=== PATIENT | female | born 1990 | race Hispanic/Latino ===

== ENCOUNTER 2021-05-18 20:16 | Inpatient (IN) | payer MEDICAID, SELFPAY ==
--- NOTE | ~2021-05-18 | MR_ITS ---
EXAMINATION: MR MRCP wo/w con/w 3D wo ind DATE: 05/19/2021 10:14 INDICATION: Cholelithiasis with elevated liver enzymes TECHNIQUE: Magnetic resonance imaging (MRI) of the abdomen was performed without and with 12 mL Multi christine intravenous contrast. Sequences included coronal T2-weighted SS-FSE, coronal T2-weighted FS SS- FSE, coronal T2-weighted FS FIESTA, axial T2-weighted FS FIESTA, axial T2-weighted FIESTA, sagittal T 2-weighted SS-FSE, axial T1-weighted dual-echo FSPGR, axial T2-weighted SS-FSE, axial T1-weighted LAV A, axial T2-weighted STIR FSE. Thick-slab T2-weighted FRFSE-XL images were obtained for magnetic reso nance cholangiopancreatography (MRCP). Rotating maximum intensity projection 3-D reconstructions of t he volumetric data were created by the technologist. Postcontrast sequences included a time course of axial T1-weighted LAVA. COMPARISON: CT dated 05/18/2021 FINDINGS: ABDOMEN MRI: Heart size is normal. No pericardial or pleural effusion. Liver, spleen, pancreas, bilateral adrenal glands and kidneys are normal. There are multiple low signal intensity gallstones filling the nearly decompressed gallbladder. No gallbladder wall thickening or pericholecystic inflammatory stranding to suggest acute cholecystitis. The bowels including the appendix are normal. No pathologically enlarge d abdominal lymphadenopathy. 3 mm retrolisthesis L5 on S1 with disc desiccation and mild disc bulge a t L5-S1. There is mild bilateral neural foraminal stenosis at this level. ABDOMEN MRCP: The common bile duct is mildly dilated to 7-8 mm. There is a 3 mm low signal intensity distal common bile duct stone at the ampulla. No intrahepatic biliary ductal dilation. No dilation of the main panc reatic duct which is nearly indiscernible IMPRESSION: 1. Cholelithiasis without findings to suggest acute cholecystitis. 2. Choledocholithiasis with 3 mm stone at the distalmost aspect of the common bile duct which is dila tyler to 8 mm. No intrahepatic biliary ductal dilation. Reviewed, dictated and finalized at location A. IMPRESSION: 1. Cholelithiasis without findings to suggest acute cholecystitis. 2. Choledocholithiasis with 3 mm stone at the distalmost aspect of the common b ile duct which is dilated to 8 mm. No intrahepatic biliary ductal dilation.
--- NOTE | ~2021-05-18 | CT_ITS ---
EXAMINATION: CT abdomen pelvis w con INDICATION: Upper abdominal and bilateral flank pain TECHNIQUE: Computed tomographic images of the abdomen and pelvis were obtained after the administrati on of 100 cc of Omnipaque 350 intravenous contrast. The dose-length product (DLP) was 454.47 mGy-cm. Automated exposure control and iterative reconstruction technique were employed. COMPARISON: None available FINDINGS: Minimal dependent atelectasis is present in the lung bases. The heart size is normal. There is mild enlargement of the common bile duct with enhancement of the wall. Stones are present in the gallbladder. There is wall thickening of the gallbladder. The liver, spleen, pancreas, and adrenal gl ands are normal. The kidneys are unremarkable. No pathologically enlarged abdominal or pelvic lymph n odes are identified. There is no free intraperitoneal gas or evidence of bowel obstruction. The appen dharmesh is normal. IMPRESSION: 1. Mild enlargement of the common bile duct with enhancement of the wall. Findings could be due to ch oledocholithiasis although none is visualized. Consider further evaluation with MRCP. 2. Cholelithiasis with mild gallbladder wall thickening, possible early cholecystitis. Consider right upper quadrant ultrasound and/or nuclear hepatobiliary scan. Reviewed, dictated and finalized at location A. IMPRESSION: 1. Mild enlargement of the common bile duct with enhancement of the wall. Findi ngs could be due to choledocholithiasis although none is visualized. Consider f urther evaluation with MRCP. 2. Cholelithiasis with mild gallbladder wall thickening, possible early cholecy stitis. Consider right upper quadrant ultrasound and/or nuclear hepatobiliary s can.
--- NOTE | ~2021-05-18 | US_ITS ---
EXAMINATION: US abdomen limited DATE: 05/19/2021 08:53 INDICATION: Cholelithiasis TECHNIQUE: Multiple grayscale and Doppler ultrasound images of the abdomen were obtained. COMPARISON: None FINDINGS: The visualized portion of the neck of the pancreas appears normal. The majority of the pancreas is ob scured. Liver has normal echogenicity and contour, with a smooth surface. No liver lesion identified. No intrahepatic biliary duct dilation suspected. Portal venous flow was seen in the hepatopetal, nor mal direction and has normal Doppler waveform. Multiple echogenic and shadowing gallstones are seen w ithin the nearly decompressed gallbladder with no abnormal wall thickening. Sonographic Nava sign w as reported as negative by the operation specialist. The common bile duct measures up to 5 mm in diameter whic h is normal. Visualized portion of the right kidney demonstrates normal echogenicity and contour with no hydronephrosis. The visualized proximal inferior vena cava is normal. IMPRESSION: 1. Cholelithiasis. Reviewed, dictated and finalized at location A. IMPRESSION: 1. Cholelithiasis.
--- NOTE | ~2021-05-18 | XR_ITS ---
EXAMINATION: XR ERCP DATE: 05/21/2021 15:24 INDICATION: Cholelithiasis. TECHNIQUE: 4 spot fluoroscopic images of the right upper quadrant were obtained during endoscopic ret rograde cholangiopancreatography (ERCP). Fluoroscopy exposure time was 140 seconds. COMPARISON: MRCP 05/19/2021 FINDINGS: Images demonstrate the endoscope with tip in the second portion of the duodenum. There is o pacification of the biliary tree with dilatation of the common duct and demonstration of balloon swee ping. IMPRESSION: 1. Dilated common duct and balloon sweeping of the common duct. Please refer to the ERCP procedure no te for additional details. Reviewed, dictated and finalized at location A. IMPRESSION: 1. Dilated common duct and balloon sweeping of the common duct. Please refer to the ERCP procedure note for additional details.
[2021-05-18 20:27] VITALS: BP 117/57; PULSE 61; RESP 18; TEMP 37.1; O2SAT 100
[2021-05-18 20:48] LABS: Basophils Percent Auto 0.5 % (0.2-1.2); Eosinophils Absolute Auto 0.2 K/mm3 (0-0.3); Eosinophils Percent Auto 2.5 % (0-4.4); Hemoglobin 12.1 g/dL (12.0-15.0); Immature Granulocyte Absolute 0.01 K/mm3 (0.00-0.031); Immature Granulocyte Percent A 0.2 % (0-0.5); Lymphocytes Percent Auto 24.9 % (18.3-44.2); Mean Corpuscular HGB Conc 32.7 g/dl (32-36); Mean Corpuscular Hemoglobin 30.9 pg (26-34); Mean Corpuscular Volume 94.4 fl (80-100); Mean Platelet Volume 10.2 fl (7.4-10.4); Monocytes Absolute Auto 0.4 K/mm3 (0.1-0.6); Neutrophils Percent Auto 65.9 % (45.5-73.1); Platelet Count Result 204 k/mm3 (150-375); Red Blood Count 3.92 M/mm3 (4.2-5.4); Red Cell Distribution Width 12.5 % (11.5-14.5)
[2021-05-18 20:59] LABS: Alanine Aminotransferase 359 U/L (4-35); Albumin Level 4.6 g/dL (3.5-5.1); Alkaline Phosphatase 226 U/L (38-126); Anion Gap 12 mmol/L (8-16); Aspartate Amino Transferase 464 U/L (14-36); Bilirubin,Total 0.7 mg/dL (0.2-1.3); Blood Urea Nitrogen 10 mg/dL (7-17); Calcium 10.1 mg/dL (8.4-10.2); Carbon Dioxide 24 mmol/L (22-30); Chloride 104 mmol/L (98-107); Estimated Glomerular Filt Rate > 60; Glucose 108 mg/dL (65-110); Lipase 82 U/L (23-300); Potassium 3.7 mmol/L (3.4-5.0); Sodium 140 mmol/L (137-145)
--- NOTE | 2021-05-18 21:03 | ED.ABDPAIN ---
HPI - Abdominal Pain General Chief Complaint: Abdominal Pain Stated Complaint: abdominal pain Time Seen by Provider: 05/18/21 21:03 History of Present Illness HPI narrative: Severe right upper quadrant pain today. radiates to the back. Associated with nausea and vomiting. She has had similar pain in the past and was told that it was due to gall stones. She did not follow-up. No fever, diarrhea, CP, SOB. Related Data Home Medications Medication Instructions Recorded Confirmed No Home Medications 05/18/21 05/18/21 Allergies Allergy/AdvReac Type Severity Reaction Status Date / Time No Known Allergies Allergy Verified 05/19/21 00:46 Review of Systems Review of Systems: All systems reviewed & are unremarkable except as noted in HPI and below Constitutional: Constitutional: Denies fever(s) Eyes: Eyes: Reports no additional eye complaints ENT: Denies dizziness Cardiovascular: Cardiovascular: Denies chest pain Respiratory: Respiratory: Denies dyspnea Gastrointestinal: Gastrointestinal: Reports as per HPI Genitourinary: Genitourinary: Reports no additional female genitourinary complaints Neurologic: Denies dizziness and Denies weakness [facility] Past Medical History Medical History RUQ pain Family History Family History Other Unknown family medical history Social History Social History Smoking status: Never smoker Alcohol intake: never Substance use: never Gender identity (if verbalized by the patient): Female Spiritual care concerns: No Exam Const: General: healthy appearing, no acute distress and alert Orientation/consciousness: patient oriented x3 HENMT: Head: normal to inspection Neck: Neck: normal visual inspection Resp: Effort & Inspection: normal respiratory effort Auscultation: clear to auscultation bilaterally Cardio: Rate: regular rate Rhythm: regular rhythm GI: Inspection: non-distended GI Palp: Yes Soft to palpation, Yes Tenderness to palpation present (GI) (RUQ/epigastrium), Yes Guarding due to palpation present (GI) and No Rebound tenderness present Auscultation: normal bowel sounds Skin: General skin exam: normal color Neuro: General: patient oriented x3 and moves all extremities Speech: normal speech Extrem: General: normal to inspection Course Vital Signs Vital signs: Vital Signs Temperature 37.1 C 05/18/21 20:27 Pulse Rate 61 05/18/21 20:27 Respiratory Rate 18 05/18/21 20:27 Blood Pressure 117/57 L 05/18/21 20:27 Pulse Oximetry 100 05/18/21 20:27 Temperature 36.2 C L 05/19/21 21:49 Pulse Rate 58 L 05/19/21 21:49 Respiratory Rate 16 05/19/21 21:49 Blood Pressure 108/66 05/19/21 21:49 Pulse Oximetry 100 05/19/21 21:49 MDM - Abdominal Pain MDM Narrative Medical decision making narrative: Imaging concerning for acute cholecystitis and choledocholithiasis. Mild leukocytosis. Moderate elevation of AST and ALT. Dr. Deal and Dr. Neal will consult. Hospitalist accepted admission. Medical Records Attestation: I reviewed the patient's medical records. Lab Data Attestation: I reviewed the patient's lab results. Result diagrams: 05/19/21 04:33 05/19/21 04:33 Labs: Lab Results 05/18/21 05/18/21 05/18/21 Range/Units 20:38 20:38 20:52 WBC 6.0 (4.5-10.0) K/mm3 RBC 3.92 L (4.2-5.4) M/mm3 Hgb 12.1 (12.0-15.0) g/dL Hct 37.0 (37.0-47.0) % MCV 94.4 (80-100) fl MCH 30.9 (26-34) pg MCHC 32.7 (32-36) g/dl RDW 12.5 (11.5-14.5) % Plt Count 204 (150-375) k/mm3 MPV 10.2 (7.4-10.4) fl Immature Gran % (Auto) 0.2 (0-0.5) % Neut % (Auto) 65.9 (45.5-73.1) % Lymph % (Auto) 24.9 (18.3-44.2) % Morton % (Auto) 6.0 (2.6-8.5) % Eos % (Auto) 2.5 (0-4.4) % Baso %
[2021-05-18 21:04] LABS: Add Urine Microscopic? YES; Amorphous Sediment Urine Few; Appearance Urine Cloudy (Clear); Bilirubin Urine Negative (Negative); Blood Urine 2+ (Negative); Color Urine Yellow (Yellow); Glucose Urine UA Negative (Negative); Ketones Urine Negative (Negative); Leukocyte Esterase Ur 1+ LEU/UL (Negative); Mucus Urine Rare /lpf; Nitrate Urine Negative (Negative); Protein Urine Negative (Negative); Specific Grav Ur 1.008 (1.001-1.035); Squamous Epithelial Cell Urine Many /hpf (Few); WBC Urine 0-3 /hpf
--- NOTE | 2021-05-18 21:09 | PC.NURSE ---
pt reports pain been ongoing 2-3 months. pt reports was at a hospital previously and was told she had gallstones
[2021-05-18 21:10] VITALS: BP 108/64; PULSE 78; RESP 14; O2SAT 100
[2021-05-18] MEDS: ONDANSETRON INJ 4 MG/2 ML VIAL IV PUSH (21:40)
[2021-05-18] MEDS: SODIUM CHLORIDE 0.9% IV 1,000 ML 999 ML IV CONT (21:40)
[2021-05-18] MEDS: fentaNYL CITRATE INJ (*CRX) 100 MCG/2 ML VIAL 50 MCG IV PUSH (21:42)
[2021-05-18 22:30] VITALS: BP 121/65; PULSE 53; RESP 16; O2SAT 100
--- NOTE | 2021-05-19 00:12 | ADMGEN ---
This patient, Jessica Nguyen, was admitted to Medical Room 248-01. Patient/family oriented to hospital policies and general routines including ID bracelet, bed and alarms, visiting hours, pain management, procedures, bathroom and other care routines, personal items, smoking policy, room service/diet, and visiting hours. Information on how to activate the Rapid Response Team has been discussed. Patient/Family are encouraged to report perceived risks to care and to ask questions if they do not understand what they are told or what they should do.
[2021-05-19 00:24] VITALS: BP 115/74; PULSE 79; RESP 16; TEMP 36; O2SAT 100
[2021-05-19] MEDS: LACTATED RINGERS 1,000 ML 125 ML IV CONT ×3 (00:28→20:31)
[2021-05-19 00:48] VITALS: BMI 24.4
--- NOTE | 2021-05-19 01:27 | PM.IMHP ---
H&P: HPI History of Present Illness Date/Time: 05/19/21 01:27 Chief Complaint: EPIGASTRIC PAIN Narrative: THIS IS A 30-YEAR-OLD FEMALE WITH PAST MEDICAL HISTORY SIGNIFICANT FOR CHOLELITHIASIS PATIENT PRESENTED TO THE EMERGENCY ROOM DUE TO EPIGASTRIC PAIN WITH RADIATION AROUND ON THE RIGHT TO THE BACK NAUSEA AND VOMITING SHE RATES HER PAIN AT 10/10 IN INTENSITY. PATIENT STATES THAT THIS IS HER 3RD TRIP TO THE EMERGENCY ROOM FOR THE SAME REASON HAS HAD DAILY EPIGASTRIC PAIN FOR THE LAST 3 MONTHS OR SO NOW HAS BECOME WORSE WITH NAUSEA AND VOMITING UNABLE TO KEEP ANYTHING DOWN WORSE AFTER HER MEALS. SHE DENIES ANY FEVERS RIGORS OR CHILLS. PRELIMINARY WORKUP WAS SIGNIFICANT FOR CT OF ABDOMEN AND PELVIS WITH DILATED COMMON BILE DUCT AND CHOLELITHIASIS WITH A THICKENED WALL GALLBLADDER. LIVER ENZYMES WERE ELEVATED WELL ALK PHOS. Review of Systems Review of Systems: EPIGASTRIC PAIN NAUSEA VOMITING Constitutional: Constitutional: Denies chills, Denies fatigue, Denies fever(s) and Reports poor appetite Eyes: Eyes: Denies change in vision ENT: Denies dysphagia, Denies nasal obstruction and Denies odynophagia Cardiovascular: Cardiovascular: Denies irregular heart rhythm, Denies claudication, Denies lightheadedness, Denies radiating jaw, neck or arm pain, Denies palpitations and Denies dyspnea Respiratory: Respiratory: Denies cough Gastrointestinal: Gastrointestinal: Reports abdominal pain, Denies dyspepsia, Denies heartburn, Reports diarrhea, Reports nausea and Reports vomiting Genitourinary: Genitourinary: Reports no additional female genitourinary complaints Musculoskeletal: Musculoskeletal: Reports no additional musculoskeletal complaints Integumentary/Breasts: Skin/Breast: Reports system reviewed and no additional complaints, except as docu Neurologic: Reports system reviewed and no additional complaints, except as documented Psychiatric: Psychiatric: Reports no additional psychiatric complaints Endocrine: Endocrine: Reports no additional endocrine complaints Hematologic/Lymphatic: Hematologic/Lymphatic: Reports no additional hematologic/lymphatic complaints Allergic/Immunologic: Allergic/Immunologic: Reports no additional allergic/immunologic complaints [facility] Family History Family History (Updated 05/19/21 @ 00:14 by Pinky Lacy RN) Other Unknown family medical history Social History Social History Smoking status: Never smoker Alcohol intake: never Substance use: never Gender identity (if verbalized by the patient): Female Spiritual care concerns: No Meds Home Medications and Allergies Home Medications Medication Instructions Recorded Confirmed Type No Home Medications 05/18/21 05/18/21 History Allergies Allergy/AdvReac Type Severity Reaction Status Date / Time No Known Allergies Allergy Verified 05/19/21 00:46 Vital Signs Vital Signs - 24 hr 05/18/21 20:27 05/18/21 21:10 05/18/21 22:30 Temperature 98.8 F Pulse Rate 61 78 53 L Respiratory Rate 18 14 16 Blood Pressure 117/57 L 108/64 121/65 Pulse Oximetry 100 100 100 05/19/21 00:24 Temperature 96.8 F L Pulse Rate 79 Respiratory Rate 16 Blood Pressure 115/74 Pulse Oximetry 100 Exam Narrative: [place] Const: General: comfortable, no acute distress, well developed, alert, awake and other ( WELL-APPEARING) Nutritional Appearance: average body habitus Orientation/consciousness: patient oriented x3 HENMT: Head: normal to inspection, normocephalic and atraumatic Ears: hearing grossly normal bilaterally General nose exam: Normal external nose present Face and sinus: normal facial exam Mouth: Yes Normal oral and palatal mucosa present Eyes: General: appearance normal, both eyes and all related structures Alignment and Position: alignment normal Sclera: sclerae normal Pupils: Equal, round and reactive pupils present EOM: EOMs intact bilaterally Neck: Neck: full ROM, no lymphadenopathy
[2021-05-19] MEDS: AMPICILLIN SULB 3 GM/NS 100 ML 3 GM/100 ML VIAL IVPB ×4 (02:05→20:15)
[2021-05-19 05:01] LABS: Basophils Percent Auto 0.2 % (0.2-1.2); Eosinophils Absolute Auto 0.2 K/mm3 (0-0.3); Eosinophils Percent Auto 3.8 % (0-4.4); Hematocrit 32.4 % (37.0-47.0); Hemoglobin 10.8 g/dL (12.0-15.0); Immature Granulocyte Absolute 0.01 K/mm3 (0.00-0.031); Immature Granulocyte Percent A 0.2 % (0-0.5); Lymphocytes Absolute Auto 2.16 K/mm3 (0.9-3.2); Lymphocytes Percent Auto 41.3 % (18.3-44.2); Mean Corpuscular HGB Conc 33.3 g/dl (32-36); Mean Corpuscular Hemoglobin 31.1 pg (26-34); Mean Corpuscular Volume 93.4 fl (80-100); Mean Platelet Volume 10.4 fl (7.4-10.4); Monocytes Absolute Auto 0.3 K/mm3 (0.1-0.6); Monocytes Percent Auto 6.5 % (2.6-8.5); Neutrophils Absolute Auto 2.5 K/mm3 (1.3-6.7); Platelet Count Result 207 k/mm3 (150-375); Red Blood Count 3.47 M/mm3 (4.2-5.4); Red Cell Distribution Width 12.4 % (11.5-14.5); White Blood Count 5.2 K/mm3 (4.5-10.0)
[2021-05-19 05:14] LABS: Alanine Aminotransferase 382 U/L (4-35); Albumin Level 3.6 g/dL (3.5-5.1); Alkaline Phosphatase 188 U/L (38-126); Anion Gap 6 mmol/L (8-16); Aspartate Amino Transferase 325 U/L (14-36); Bilirubin,Total 0.3 mg/dL (0.2-1.3); Blood Urea Nitrogen 6 mg/dL (7-17); Carbon Dioxide 25 mmol/L (22-30); Chloride 109 mmol/L (98-107); Estimated CRCL calculation 99 ml/min; Estimated Glomerular Filt Rate > 60; Glucose 81 mg/dL (65-110); Lipase 53 U/L (23-300); Potassium 4.6 mmol/L (3.4-5.0); Sodium 140 mmol/L (137-145)
[2021-05-19 05:22] VITALS: BP 111/65; PULSE 60; RESP 18; TEMP 36.6; O2SAT 100
--- NOTE | 2021-05-19 10:01 | WPDGICN ---
Assessment and Plan Assessment and plan (1) Cholelithiasis and cholecystitis with obstruction: Code(s): K80.19 - Calculus of gallbladder with other cholecystitis with obstruction Status: Acute Assessment and Plan: patient presented with worsening pain in ruq/epigastric site with elevated liver enzymes. MRCP pending to assess if she also has stones in bile duct and if that is the case then also will need ERCP, she was started on antibiotics. Will ask surgery to see patient, will need lap linda (2) Elevated liver enzymes: Code(s): R74.8 - Abnormal levels of other serum enzymes Status: Acute Assessment and Plan: most likely GB related, monitor denies alcohol or history of hepatitis will check hepatitis panel (3) Intractable nausea and vomiting: Code(s): R11.2 - Nausea with vomiting, unspecified Status: Acute Assessment and Plan: better, antiemetics prn liquid diet for now (4) RUQ pain: Code(s): R10.11 - Right upper quadrant pain Status: Acute GI Consult Note Consult date/time: 05/19/21 10:01 Reason for consult: cholecystitis, elevated liver enzymes HPI: Jessica Nguyen is a 30 year old female female from [place] who only speaks Occitan (I talked to her in Occitan). She says that for last 2-3 months had at least 2 different episodes of severe pain in epigastric area with radiation to RUQ and her back with nausea and vomiting lasting up to few hours. She came with severe pain in upper abdomen, similar presentation to previous attacks, also intractable nausea and vomiting (this is her third visit to ER, she used to go to [facility] CT scan a/p reviewed and shower mild enlargement of the common bile duct with enhancement of the wall. Findings could be due to choledocholithiasis although none is visualized. Cholelithiasis with mild gallbladder wall thickening, possible early cholecystitis. She also found to have elevated transaminases 300-400, AP 150, normal bili and wbc. Pain is better now. Review of Systems Constitutional: Constitutional: Denies fatigue Eyes: Eyes: Denies blurry vision ENT: Reports Normal hearing present Cardiovascular: Cardiovascular: Denies chest pain Respiratory: Respiratory: Denies dyspnea Gastrointestinal: Gastrointestinal: Reports abdominal pain, Reports nausea and Reports vomiting Genitourinary: Genitourinary: Denies hematuria Musculoskeletal: Musculoskeletal: Denies neck pain Integumentary/Breasts: Skin/Breast: Denies dry skin Neurologic: Denies headache(s) Psychiatric: Psychiatric: Denies behavioral changes [facility] Past Medical History Medical History (Updated 05/19/21 @ 10:30 by Dimas Rincon MD) RUQ pain Family History Family History (Updated 05/19/21 @ 00:14 by Pinky Lacy RN) Other Unknown family medical history Social History Social History Smoking status: Never smoker Alcohol intake: never Substance use: never Gender identity (if verbalized by the patient): Female Spiritual care concerns: No Meds Home Medications and Allergies Home Medications Medication Instructions Recorded Confirmed Type No Home Medications 05/18/21 05/18/21 History Allergies Allergy/AdvReac Type Severity Reaction Status Date / Time No Known Allergies Allergy Verified 05/19/21 00:46 Vital Signs Vital Signs - 24 hr 05/18/21 20:27 05/18/21 21:10 05/18/21 22:30 Temperature 98.8 F Pulse Rate 61 78 53 L Respiratory Rate 18 14 16 Blood Pressure 117/57 L 108/64 121/65 Pulse Oximetry 100 100 100 05/19/21 00:24 05/19/21 05:22 Temperature 96.8 F L 97.9 F Pulse Rate 79 60 Respiratory Rate 16 18 Blood Pressure 115/74 111/65 Pulse Oximetry 100 100 Exam Const: General: comfortable and no acute distress HENMT: General nose exam: Normal nares present Eyes: Sclera: sclerae normal Neck: Neck: supple Resp: Effort & Inspection: normal respiratory
--- NOTE | 2021-05-19 10:48 | PM.CNGS ---
Assessment and Plan Assessment and plan (1) Cholelithiasis and cholecystitis with obstruction: Onset Date: ~03/2021 Code(s): K80.19 - Calculus of gallbladder with other cholecystitis with obstruction Status: Acute Assessment and Plan: The patient has had a couple of months of periodic right upper quadrant abdominal pain and has of cholelithiasis by ultrasound and CT. In view of this I have offered the patient laparoscopic cholecystectomy possible intraoperative cholangiogram possible open cholecystectomy. Since this appears to have become acute will consider doing it this weekend. Will await the results of the MRCP done today. If this shows no stones in the common bile duct will consider proceeding tomorrow with a laparoscopic gallbladder surgery. If there are stones will await plans for ERCP and plan to do the laparoscopic gallbladder surgery after that. The risks benefits possible complications including bleeding, infection, possible injury to surrounding organs have been described to the patient and translated through the [employer] and all questions were answered. We will also provide the patient with some written Czech information regarding gallbladder disease and laparoscopic cholecystectomy. (2) Intractable nausea and vomiting: Onset Date: ~04/2021 Code(s): R11.2 - Nausea with vomiting, unspecified Status: Acute Assessment and Plan: This has been more in the last several days. Probably related to # 1. above (3) Elevated liver enzymes: Onset Date: ~04/2021 Code(s): R74.8 - Abnormal levels of other serum enzymes Status: Acute Assessment and Plan: unknown etiology mainly intrinsic enzymes are elevated. Out fossa is also slightly up awaiting results of MRCP. (4) RUQ pain: Code(s): R10.11 - Right upper quadrant pain Status: Acute History of Present Illness Consult details Consult date: 05/19/21 Review of Systems Constitutional: Constitutional: Reports as per HPI and Denies headache(s) Eyes: Eyes: Denies loss of vision and Denies eye pain ENT: Reports Normal hearing present, Denies change in voice, Denies dizziness and Denies headache(s) Cardiovascular: Cardiovascular: Denies chest pain and Denies dyspnea Respiratory: Respiratory: Denies dyspnea and Denies wheezing Gastrointestinal: Gastrointestinal: Reports abdominal pain (In epigastrium right upper quadrant radiating to the right flank.), Reports nausea and Reports vomiting Genitourinary: Genitourinary: Reports no additional female genitourinary complaints Musculoskeletal: Musculoskeletal: Denies back pain and Denies arthralgias Neurologic: Reports Normal hearing present, Denies dizziness, Denies headache(s), Denies loss of vision and Denies memory loss Psychiatric: Psychiatric: Denies memory loss and Denies panic attacks Endocrine: Endocrine: Reports no additional endocrine complaints Hematologic/Lymphatic: Hematologic/Lymphatic: Reports no additional hematologic/lymphatic complaints Allergic/Immunologic: Allergic/Immunologic: Denies wheezing PMFSH Past Medical History Medical History RUQ pain Family History Family History Other Unknown family medical history Social History Social History Smoking status: Never smoker Alcohol intake: never Substance use: never Gender identity (if verbalized by the patient): Female Spiritual care concerns: No Meds Home Medications and Allergies Home Medications Medication Instructions Recorded Confirmed Type No Home Medications 05/18/21 05/18/21 History Allergies Allergy/AdvReac Type Severity Reaction Status Date / Time No Known Allergies Allergy Verified 05/19/21 00:46 Vital Signs Vital Signs - 24 hr 05/18/21 20:27 05/18
[2021-05-19 14:00] VITALS: BP 104/55; PULSE 50; RESP 16; TEMP 36.9; O2SAT 100
--- NOTE | 2021-05-19 16:34 | PM.IMPN ---
Progress Note: A&P Assessment and Plan (1) Intractable nausea and vomiting: Onset Date: ~04/2021 Code(s): R11.2 - Nausea with vomiting, unspecified Status: Acute Assessment and Plan: KEEP NPO OKAY FOR ICE CHIPS SUPPORTIVE CARE IV FLUIDS PPI NEEDED (2) Cholecystitis: Code(s): K81.9 - Cholecystitis, unspecified Status: Acute Assessment and Plan: STARTED ON UNASYN 3gm IV (3) Elevated liver enzymes: Onset Date: ~04/2021 Code(s): R74.8 - Abnormal levels of other serum enzymes Status: Acute Assessment and Plan: LIKELY SECONDARY TO CALL STATUS IS RIGHT UPPER QUADRANT ULTRASOUND IN A.M. (4) Cholelithiasis and cholecystitis with obstruction: Onset Date: ~03/2021 Code(s): K80.19 - Calculus of gallbladder with other cholecystitis with obstruction Status: Acute Assessment and Plan: SURGERY AND GI HAS BEEN CONSULTED POSSIBLE MRCP Subjective Date/time seen: 05/19/21 14:30 Interval history: Jessica Nguyen is a 30 year old female female from [place] who only speaks Greek (I talked to her in Greek). She says that for last 2-3 months had at least 2 different episodes of severe pain in epigastric area with radiation to RUQ and her back with nausea and vomiting lasting up to few hours. Patient underwent a MRCP today that did show some stones. Patient does not have any further complaints at this time. When I went into examine the patient, she was sleeping really well. Patient has no further complaints at this time. Review of Systems Review of Systems: All systems reviewed & are unremarkable except as noted in HPI and below Exam Const: General: cooperative, healthy appearing, comfortable, no acute distress, well developed, alert and awake Nutritional Appearance: average body habitus and well nourished Orientation/consciousness: oriented to person, oriented to place, oriented to time and patient oriented x3 HENMT: Head: normal to inspection, normocephalic and atraumatic Ears: hearing grossly normal bilaterally General nose exam: Normal external nose present Face and sinus: normal facial exam Mouth: Yes Normal oral and palatal mucosa present Eyes: General: appearance normal, both eyes and all related structures Alignment and Position: alignment normal Sclera: sclerae normal Pupils: Equal, round and reactive pupils present EOM: EOMs intact bilaterally Neck: Neck: full ROM, no lymphadenopathy and no JVD Thyroid: thyroid normal Lymphatic: no lymphadenopathy noted Resp: Effort & Inspection: normal respiratory effort and able to speak in complete sentences Auscultation: clear to auscultation bilaterally Cardio: Jugular venous distension: no JVD Rate: regular rate Rhythm: regular rhythm Heart sounds: S1 normal heart sound present and S2 normal heart sound present GI: Inspection: normal to inspection and non-distended : General: Yes deferred Skin: General skin exam: normal color Rashes: no rashes Wounds: no wounds Neuro: General: oriented to person, oriented to place, oriented to time, patient oriented x3, gait normal, tone normal, moves all extremities and CN's II-XI intact bilaterally Cranial nerves: Yes CN's II-XII intact bilaterally, Yes Equal, round and reactive pupils present and Yes Bilaterally intact EOM present Cognition (Neuro): normal cognition Speech: normal speech Gait exam (Neuro): Normal gait present Motor exam (neuro): 5/5 motor strength present throughout Extrem: General: normal to inspection, full ROM, no joint enlargement and no pedal edema Objective Data Vital Signs Vital Signs: Vital Signs - 24 hr 05/18/21 20:27 05/18/21 21:10 05/18/21 22:30 Temperature 37.1 C Pulse Rate 61 78 53 L Respiratory Rate 18 14 16 Blood Pressure 117/57 L 108/64 121/65 Pulse Oximetry 100 100 100 05/19/21 00:24 05/19/21 05:22 05/19/21 14:00 Temperature 36.
[2021-05-19 21:49] VITALS: BP 108/66; PULSE 58; RESP 16; TEMP 36.2; O2SAT 100
[2021-05-20] MEDS: AMPICILLIN SULB 3 GM/NS 100 ML 3 GM/100 ML VIAL IVPB ×4 (01:34→19:32)
[2021-05-20 05:25] LABS: Hematocrit 31.7 % (37.0-47.0); Hemoglobin 10.8 g/dL (12.0-15.0); Mean Corpuscular HGB Conc 34.1 g/dl (32-36); Mean Corpuscular Hemoglobin 31.3 pg (26-34); Mean Corpuscular Volume 91.9 fl (80-100); Mean Platelet Volume 10.5 fl (7.4-10.4); Platelet Count Result 201 k/mm3 (150-375); Red Blood Count 3.45 M/mm3 (4.2-5.4); Red Cell Distribution Width 12.5 % (11.5-14.5); White Blood Count 5.3 K/mm3 (4.5-10.0)
[2021-05-20 05:44] LABS: Alanine Aminotransferase 262 U/L (4-35); Albumin Level 3.5 g/dL (3.5-5.1); Alkaline Phosphatase 171 U/L (38-126); Anion Gap 10 mmol/L (8-16); Aspartate Amino Transferase 97 U/L (14-36); Bilirubin,Total 0.4 mg/dL (0.2-1.3); Blood Urea Nitrogen 3 mg/dL (7-17); Calcium 9.4 mg/dL (8.4-10.2); Carbon Dioxide 25 mmol/L (22-30); Chloride 105 mmol/L (98-107); Estimated CRCL calculation 116 ml/min; Estimated Glomerular Filt Rate > 60; Glucose 77 mg/dL (65-110); Magnesium 1.4 mg/dL (1.6-2.3); Potassium 3.5 mmol/L (3.4-5.0); Sodium 140 mmol/L (137-145)
[2021-05-20 06:00] VITALS: BP 120/62; PULSE 64; RESP 18; TEMP 37.1; O2SAT 100
[2021-05-20 07:25] LABS: Hepatitis B Surface Antigen Negative (Negative)
[2021-05-20 07:31] LABS: HAV RESULT Negative (Negative); Hepatitis B Core IgM Result Negative (Negative)
[2021-05-20 07:42] LABS: Hepatitis C Virus Antibody Negative (Negative)
[2021-05-20] MEDS: HYDROcodone/acetaminophen (*CRX) 5-325 MG TABLET 1 TAB PO (08:00)
[2021-05-20] MEDS: LACTATED RINGERS 1,000 ML 125 ML IV CONT ×2 (08:02→19:32)
[2021-05-20] MEDS: MAGNESIUM SULF 4 GM/WATER100ML 4 GM/100 ML BAG IVPB (08:57)
--- NOTE | 2021-05-20 10:07 | PM.IMPN ---
Progress Note: A&P Assessment and Plan (1) Intractable nausea and vomiting: Onset Date: ~04/2021 Code(s): R11.2 - Nausea with vomiting, unspecified Status: Acute Assessment and Plan: Full liquid diet no nausea and vomiting reported SUPPORTIVE CARE IV FLUIDS PPI NEEDED (2) Cholecystitis: Code(s): K81.9 - Cholecystitis, unspecified Status: Acute Assessment and Plan: STARTED ON UNASYN 3gm IV WBC 5.5 trend labs labs in the am MRCP-cholelithiasis and a 3mm stone at the distal most aspect of the common bile duct ERCP for tomorrow Cholecystectomy tomorrow (3) Elevated liver enzymes: Onset Date: ~04/2021 Code(s): R74.8 - Abnormal levels of other serum enzymes Status: Acute Assessment and Plan: LIKELY SECONDARY TO cholecystectomy RIGHT UPPER QUADRANT ULTRASOUND: Cholelithiasis No liver lesion identified AST ALT trend down AST/ALT 464/359 on admission AST/ALT 262/171 today (4) Cholelithiasis and cholecystitis with obstruction: Onset Date: ~03/2021 Code(s): K80.19 - Calculus of gallbladder with other cholecystitis with obstruction Status: Acute Assessment and Plan: SURGERY AND GI HAS BEEN CONSULTED: thank you for your recommendations MRCP 05/19/21 ERCP 05/21/21 Subjective Date/time seen: 05/20/21 08:45 Interval history: Jessica Nguyen is a 30 year old female female from [place] who only speaks Yoruba says that for last 2-3 months had at least 2 different episodes of severe pain in epigastric area with radiation to RUQ and her back with nausea and vomiting lasting up to few hours. Patient has pain today. She stated that she was given oral pain medication that did help, however, she stated that her pain came back rather quickly. she stated that her pain is in her lower abdomen, under her navel. She rates the pain 4-5/0. She also stated that she is having some chills, and she sometimes feels like she is short of breath at rest and with activity. It is noted that she is going to have an ERCP done first then will probably have a cholecystectomy. Currently she is hunger and has been able to tolerate her full liquid tray. She denies chest pain, nausea, vomiting, headache, fevers, or sweats. Review of Systems Review of Systems: All systems reviewed & are unremarkable except as noted in HPI and below Exam Const: General: cooperative, healthy appearing, comfortable, no acute distress, well developed, alert and awake Nutritional Appearance: average body habitus and well nourished Orientation/consciousness: oriented to person, oriented to place, oriented to time and patient oriented x3 HENMT: Head: normal to inspection, normocephalic and atraumatic Ears: hearing grossly normal bilaterally General nose exam: Normal external nose present Face and sinus: normal facial exam Mouth: Yes Normal oral and palatal mucosa present Eyes: General: appearance normal, both eyes and all related structures Alignment and Position: alignment normal Sclera: sclerae normal Pupils: Equal, round and reactive pupils present EOM: EOMs intact bilaterally Neck: Neck: full ROM, no lymphadenopathy and no JVD Thyroid: thyroid normal Lymphatic: no lymphadenopathy noted Resp: Effort & Inspection: normal respiratory effort and able to speak in complete sentences Auscultation: clear to auscultation bilaterally Cardio: Jugular venous distension: no JVD Rate: regular rate Rhythm: regular rhythm Heart sounds: S1 normal heart sound present and S2 normal heart sound present GI: Inspection: normal to inspection and non-distended : General: Yes deferred Skin: General skin exam: normal color Rashes: no rashes Wounds: no wounds Neuro: General: oriented to person, oriented to place, oriented to time, patient oriented x3, gait normal, tone normal, moves all extremities and CN's II
[2021-05-20] MEDS: MORPHINE SULFATE (*CRX) 4 MG/ML INJ IV PUSH (11:05)
--- NOTE | 2021-05-20 11:05 | PC.NURSE ---
Patient complaining of shortness of breath at rest and with activity. Keyur Weathers is aware. Patient's oxygen at rest and with activity was 100%. Patient complaining of pain from her IV. IV replaced. I explained the patient's oxygen levels, pain medications and IV using the [employer] sorter [employer]issel [id number].
--- NOTE | 2021-05-20 11:25 | WPDGIPROGNO ---
Progress Note: A&P Assessment and Plan (1) Choledocholithiasis with acute cholecystitis with obstruction: Code(s): K80.43 - Calculus of bile duct with acute cholecystitis with obstruction Status: Acute Assessment and Plan: MRCP reviewed and showed 3mm stone in distal cbd, this was reviewed with patient and , answered all their questions and agreeable to proceed tomorrow with ERCP, then will need lap linda (surgery on board) (2) RUQ pain: Code(s): R10.11 - Right upper quadrant pain Status: Acute Assessment and Plan: biliary related, improving will give indomethacin tomorrow prior ercp as pancretitis prophylaxis (3) Elevated liver enzymes: Onset Date: ~04/2021 Code(s): R74.8 - Abnormal levels of other serum enzymes Status: Acute Assessment and Plan: trending down hepatitis panel negative (4) Intractable nausea and vomiting: Onset Date: ~04/2021 Code(s): R11.2 - Nausea with vomiting, unspecified Status: Acute Assessment and Plan: resolved, on liquid diet Subjective Date/time seen: 05/20/21 11:25 Interval history: still some abdominal pain but improved, tolerating liquid diet. also is at bedside. Review of Systems Review of Systems: All systems reviewed & are unremarkable except as noted in HPI and below Exam Const: General: comfortable and no acute distress HENMT: General nose exam: Normal nares present Eyes: Sclera: sclerae normal Neck: Neck: supple Resp: Auscultation: clear to auscultation bilaterally Cardio: Rate: regular rate Rhythm: regular rhythm GI: GI Palp: Yes Soft to palpation, Yes Tenderness to palpation present (GI) (mild ttp in epigastric, no rebound- improved) and No Guarding due to palpation present (GI) Auscultation: normal bowel sounds Skin: General skin exam: normal color Neuro: General: gait normal Speech: normal speech Motor exam (neuro): Normal motor muscle tone present throughout Extrem: General: normal to inspection Psych: Mental Status: mental status grossly normal Objective Data Vital Signs Vital Signs: Vital Signs - 24 hr 05/19/21 14:00 05/19/21 21:49 05/20/21 06:00 Temperature 98.4 F 97.2 F L 98.8 F Pulse Rate 50 L 58 L 64 Respiratory Rate 16 16 18 Blood Pressure 104/55 L 108/66 120/62 Pulse Oximetry 100 100 100 Intake/Output Intake/Output: Intake & Output 05/17/21 05/18/21 05/19/21 05/20/21 23:59 23:59 23:59 23:59 Intake Total 1050 2600 1200 Balance 1050 2600 1200 Meds/Results Medications: Active Medications Generic Name Dose Route Start Last Admin Trade Name Freq PRN Reason Stop Dose Admin Hydrocodone Bitart/Acetaminophen 1 tab 05/20/21 07:52 05/20/21 08:00 Hydrocodone/Acetaminophen (*Crx) 5-325 Mg Tablet PO 1 tab Q6H PRN Administration Pain Rated 4-6 Lactated Ringer's 1,000 mls @ 125 mls/hr 05/18/21 22:50 05/20/21 08:02 Lr - Lactated Ringers Iv IV CONT 125 mls/hr .Q8H RAFIA Administration Ampicillin Sodium/Sulbactam Sodium 3 gm in 100 mls @ 200 mls/hr 05/19/21 02:00 05/20/21 08:30 Unasyn 3 Gm/Ns 100 Ml IVPB Infused Q6H RAFIA Infusion Indomethacin 50 mg 05/21/21 13:00 Indomethacin 50 Mg Supp.Rect RECTAL 05/21/21 13:01 ONCE ONE Morphine Sulfate 4 mg 05/18/21 22:48 05/20/21 11:05 Morphine Sulfate (*Crx) 4 Mg/Ml Inj IV PUSH 4 mg Q2H PRN Administration Pain Rated 7-10 Ondansetron HCl 4 mg 05/18/21 22:48 Ondansetron Inj 4 Mg/2 Ml Vial IV PUSH Q4H PRN Nausea Radiology Results: ITS Impressions Abdomen/Pelvis CT 05/18/21 22:23 IMPRESSION: 1. Mild enlargement of the common bile duct with enhancement of the wall. Findings could be due to choledocholithiasis although none is visualized. Consider further evaluation with MRCP. 2. Cholelithiasis with mild gallbladder wall thickening, possible early cholecystitis. Consider right upper quadrant ultrasound and/or nuclea
[2021-05-20 14:15] VITALS: BP 124/71; PULSE 62; RESP 16; TEMP 36.5; O2SAT 100
[2021-05-20 21:23] VITALS: BP 109/66; PULSE 53; RESP 16; TEMP 36.8; O2SAT 100
[2021-05-21] VITALS (11 sets, daily range): BP systolic 100–145; BP diastolic 57–85; PULSE 47–74; RESP 14–23; TEMP 36–37.3; O2SAT 98–100
[2021-05-21] MEDS: AMPICILLIN SULB 3 GM/NS 100 ML 3 GM/100 ML VIAL IVPB ×4 (01:17→22:31)
[2021-05-21 06:24] LABS: Hematocrit 33.6 % (37.0-47.0); Hemoglobin 11.4 g/dL (12.0-15.0); Mean Corpuscular HGB Conc 33.9 g/dl (32-36); Mean Corpuscular Hemoglobin 31.5 pg (26-34); Mean Corpuscular Volume 92.8 fl (80-100); Mean Platelet Volume 10.5 fl (7.4-10.4); Platelet Count Result 200 k/mm3 (150-375); Red Blood Count 3.62 M/mm3 (4.2-5.4); Red Cell Distribution Width 12.4 % (11.5-14.5); White Blood Count 5.5 K/mm3 (4.5-10.0)
[2021-05-21 06:48] LABS: Alanine Aminotransferase 200 U/L (4-35); Albumin Level 3.8 g/dL (3.5-5.1); Alkaline Phosphatase 158 U/L (38-126); Anion Gap 8 mmol/L (8-16); Aspartate Amino Transferase 57 U/L (14-36); Bilirubin,Total 0.4 mg/dL (0.2-1.3); Blood Urea Nitrogen 3 mg/dL (7-17); Calcium 9.4 mg/dL (8.4-10.2); Carbon Dioxide 26 mmol/L (22-30); Chloride 106 mmol/L (98-107); Estimated CRCL calculation 99 ml/min; Estimated Glomerular Filt Rate > 60; Glucose 72 mg/dL (65-110); Sodium 140 mmol/L (137-145)
[2021-05-21] MEDS: LACTATED RINGERS 1,000 ML 125 ML IV CONT ×3 (07:41→22:31)
--- NOTE | 2021-05-21 13:15 | PC.NURSE ---
Patient left to go to GI lab via stretcher, went with pt.
[2021-05-21] MEDS: LACTATED RINGERS 1,000 ML 150 ML IV CONT (13:36)
--- NOTE | 2021-05-21 13:44 | WPDANESEPPF ---
Anes - Initial Pre Proc Eval Procedure: Operation Date: 05/21/21 14:00 Proposed Procedures p Endoscopic Retro Cholangiopancreatogram - Dimas Rincon MD Date/Time: 05/21/21 13:44 Surgeon: Dori Jacinto MD Pre Op Diagnosis: Acute choledocolithiasis/cholecystitis Patient Data Age: 30 Gender: F Height: 1.63 m Weight: 64.5 kg Last Vital Signs Temp 36.4 C L 05/21/21 13:26 Pulse 74 05/21/21 13:26 Resp 18 05/21/21 13:26 BP 126/58 L 05/21/21 13:26 Pulse Ox 100 05/21/21 13:26 Allergies Allergy/AdvReac Type Severity Reaction Status Date / Time No Known Allergies Allergy Verified 05/21/21 13:21 Home Medications Medication Instructions Recorded Confirmed Type No Home Medications 05/18/21 05/18/21 History Laboratory Tests 05/21/21 05/21/21 05:45 05:45 WBC 5.5 K/mm3 K/mm3 (4.5-10.0) RBC 3.62 M/mm3 L M/mm3 (4.2-5.4) Hgb 11.4 g/dL L g/dL (12.0-15.0) Hct 33.6 % L % (37.0-47.0) MCV 92.8 fl fl (80-100) MCH 31.5 pg pg (26-34) MCHC 33.9 g/dl g/dl (32-36) RDW 12.4 % % (11.5-14.5) Plt Count 200 k/mm3 k/mm3 (150-375) MPV 10.5 fl H fl (7.4-10.4) Sodium 140 mmol/L mmol/L (137-145) Potassium 4.0 mmol/L mmol/L (3.4-5.0) Chloride 106 mmol/L mmol/L (98-107) Carbon Dioxide 26 mmol/L mmol/L (22-30) Anion Gap 8 mmol/L mmol/L (8-16) BUN 3 mg/dL L mg/dL (7-17) Creatinine 0.60 mg/dL L mg/dL (0.7-1.0) Estim Creat Clear Calc 99 ml/min ml/min Estimated GFR > 60 (59 - ) Glucose 72 mg/dL mg/dL (65-110) Calcium 9.4 mg/dL mg/dL (8.4-10.2) Total Bilirubin 0.4 mg/dL mg/dL (0.2-1.3) AST 57 U/L H U/L (14-36) ALT 200 U/L H U/L (4-35) Alkaline Phosphatase 158 U/L H U/L (38-126) Total Protein 6.0 g/dL L g/dL (6.3-8.2) Albumin 3.8 g/dL g/dL (3.5-5.1) Patient hx anesthesia problems: none Family hx anesthesia problems: none [facility] Past Medical History Medical History (Updated 05/20/21 @ 11:27 by Dimas Rincon MD) Choledocholithiasis with acute cholecystitis with obstruction RUQ pain Family History Family History Other Unknown family medical history Social History Social History Smoking status: Never smoker Alcohol intake: never Substance use: never Gender identity (if verbalized by the patient): Female Spiritual care concerns: No Anes - Eval Final PreProcedure Day of Procedure 05/21/21 13:44 Patient weight: normal Heart: regular rate and rhythm Lungs: clear to auscultation Airway: Mallampati scale class II Neurological: alert and oriented Last oral intake: >/= 8 hours ASA classification: II Emergent: no Anesthetic plan: proceed Anesthesia type and monitoring: general ETT and standard monitoring Informed Consent: The patient's anesthetic plan and its attendant risks and benefits were discussed with the patient/family/POA. Questions were solicited and answers provided to the satisfaction of the patient/family/POA.
[2021-05-21] MEDS: INDOMETHACIN 50 MG SUPP.RECT RECTAL (14:49)
--- NOTE | 2021-05-21 16:27 | PM.IMPN ---
Progress Note: A&P Assessment and Plan (1) Intractable nausea and vomiting: Onset Date: ~04/2021 Code(s): R11.2 - Nausea with vomiting, unspecified Status: Acute Assessment and Plan: Clear liquid diet no nausea and vomiting reported SUPPORTIVE CARE IV FLUIDS PPI NEEDED (2) Cholecystitis: Code(s): K81.9 - Cholecystitis, unspecified Status: Acute Assessment and Plan: STARTED ON UNASYN 3gm IV WBC 5.5 trend labs labs in the am MRCP-cholelithiasis and a 3mm stone at the distal most aspect of the common bile duct ERCP removed a 4mm stone Cholecystectomy possibly tomorrow (3) Elevated liver enzymes: Onset Date: ~04/2021 Code(s): R74.8 - Abnormal levels of other serum enzymes Status: Acute Assessment and Plan: LIKELY SECONDARY TO cholecystitis RIGHT UPPER QUADRANT ULTRASOUND: Cholelithiasis No liver lesion identified AST ALT trend down AST/ALT 464/359 on admission AST/ALT 57/200 today (4) Cholelithiasis and cholecystitis with obstruction: Onset Date: ~03/2021 Code(s): K80.19 - Calculus of gallbladder with other cholecystitis with obstruction Status: Acute Assessment and Plan: SURGERY AND GI HAS BEEN CONSULTED: thank you for your recommendations MRCP 05/19/21 ERCP 05/21/21 Subjective Date/time seen: 05/21/21 16:27 Interval history: Jessica Nguyen is a 30 year old female female from [place] who only speaks Kazakh says that for last 2-3 months had at least 2 different episodes of severe pain in epigastric area with radiation to RUQ and her back with nausea and vomiting lasting up to few hours. Patient just got back from her ERCP where they removed a 4mm stone from the bile duct. Mild pain in the throat from the EGD scope. She also stated that she is having some nagging pain in the lower abdomen which she rates as a 3/10. She is also stating that she is hungry and wants to eat. She denies chest pain, shortness of breath, nausea, vomiting, cough, and weakness. Review of Systems Review of Systems: All systems reviewed & are unremarkable except as noted in HPI and below Exam Const: General: cooperative, healthy appearing, comfortable, no acute distress, well developed, alert and awake Nutritional Appearance: average body habitus and well nourished Orientation/consciousness: oriented to person, oriented to place, oriented to time and patient oriented x3 HENMT: Head: normal to inspection, normocephalic and atraumatic Ears: hearing grossly normal bilaterally General nose exam: Normal external nose present Face and sinus: normal facial exam Mouth: Yes Normal oral and palatal mucosa present Eyes: General: appearance normal, both eyes and all related structures Alignment and Position: alignment normal Sclera: sclerae normal Pupils: Equal, round and reactive pupils present EOM: EOMs intact bilaterally Neck: Neck: full ROM, no lymphadenopathy and no JVD Thyroid: thyroid normal Lymphatic: no lymphadenopathy noted Resp: Effort & Inspection: normal respiratory effort and able to speak in complete sentences Auscultation: clear to auscultation bilaterally Cardio: Jugular venous distension: no JVD Rate: regular rate Rhythm: regular rhythm Heart sounds: S1 normal heart sound present and S2 normal heart sound present GI: Inspection: normal to inspection and non-distended : General: Yes deferred Skin: General skin exam: normal color Rashes: no rashes Wounds: no wounds Neuro: General: oriented to person, oriented to place, oriented to time, patient oriented x3, gait normal, tone normal, moves all extremities and CN's II-XI intact bilaterally Cranial nerves: Yes CN's II-XII intact bilaterally, Yes Equal, round and reactive pupils present and Yes Bilaterally intact EOM present Cognition (Neuro): normal cognition Speech: normal speech Gait exam (Ne
--- NOTE | 2021-05-21 20:51 | PM.PNGS ---
Progress Note: A&P Assessment and Plan (1) Cholelithiasis and cholecystitis with obstruction: Onset Date: ~03/2021 Code(s): K80.19 - Calculus of gallbladder with other cholecystitis with obstruction Status: Acute Assessment and Plan: The patient has had a couple of months of periodic right upper quadrant abdominal pain and has of cholelithiasis by ultrasound and CT. In view of this I have offered the patient laparoscopic cholecystectomy possible intraoperative cholangiogram possible open cholecystectomy. Since this appears to have become acute will consider doing it this weekend. Her MRCP showed a nondistended non inflamed gallbladder. There was however a 3-4 mm stone in the common bile duct and this was removed with ERCP today. Dr. christian Nathan get stated that it went well and he would be comfortable with her going home today. I have checked with surgery and they will not let me do surgery until late tomorrow. Therefore I suggest that we send the patient home and consider bringing her back as an outpatient for her definitive laparoscopic cholecystectomy. She is willing to go home tonight of her 0 come back pick her upper also moral after breakfast. The risks benefits possible complications including bleeding, infection, possible injury to surrounding organs have been described to the patient and translated through the [employer] and all questions were answered. We will also provide the patient with some written Bhutanese information regarding gallbladder disease and laparoscopic cholecystectomy using the solar electric practitioner on Friday.. (2) Intractable nausea and vomiting: Onset Date: ~04/2021 Code(s): R11.2 - Nausea with vomiting, unspecified Status: Acute Assessment and Plan: This has Now resolved (3) Elevated liver enzymes: Onset Date: ~04/2021 Code(s): R74.8 - Abnormal levels of other serum enzymes Status: Acute Assessment and Plan: unknown etiology mainly intrinsic enzymes are elevated. total bilirubin was normal this morning before year CP. Dr. arteaga did find a single 4 mm stone in the distal common bile duct. (4) RUQ pain: Code(s): R10.11 - Right upper quadrant pain Status: Acute Assessment and Plan: Resolve status post ERCP. However we know the patient has gallstones and since she passed this when we should go ahead with a laparoscopic cholecystectomy in the near future. Current plan is to let her go home try to get this scheduled for late this week at a reasonable time and she will come back and have a done as an outpatient. Subjective Subjective Date/Time Seen: 05/21/21 20:51 Patient lying in bed finishing some liquids supper when I entered. I used the [employer] her potatoes. She states that she feels pretty good after her ERCP today. The nurse reports she has not taken anything except Tylenol for pain over the last 16 hours. Patient tolerated a liquid diet. She states that her or he went home but if he is willing to come back she would like to go home and then come back for surgery. We talked about this the other day. I knew the Friday was ordered a busy day in the OR and they tell me they would not be able this let me do her surgery until after 3 tomorrow. I will try to get or surgery scheduled for or Friday this week at a reasonable time and she will come back and have it done as an outpatient. We will provide her with a Bhutanese language low-fat diet and she should stick to this religiously. This was explained to her through the solar [employer] practitioner. Jsesika cervantes nurse knows this and we will ask hospitalist to discharge her if her can come back otherwise she may be able go home after breakfast tomorrow. Review of Systems Constitutional: Constitutional: Reports as per HPI and Denies headache(s) Eyes: Eyes: Denies loss of vision and Denies eye pain ENT: Reports Normal hearing present, Denies change in voice
[2021-05-22] MEDS: AMPICILLIN SULB 3 GM/NS 100 ML 3 GM/100 ML VIAL IVPB (01:44)
[2021-05-22 05:51] VITALS: BP 117/68; PULSE 59; RESP 14; TEMP 36.5; O2SAT 99
[2021-05-22 06:01] LABS: Hematocrit 35.2 % (37.0-47.0); Mean Corpuscular HGB Conc 34.1 g/dl (32-36); Mean Corpuscular Hemoglobin 31.3 pg (26-34); Mean Corpuscular Volume 91.9 fl (80-100); Mean Platelet Volume 10.7 fl (7.4-10.4); Platelet Count Result 217 k/mm3 (150-375); Red Blood Count 3.83 M/mm3 (4.2-5.4); White Blood Count 6.3 K/mm3 (4.5-10.0)
[2021-05-22 06:16] LABS: Alanine Aminotransferase 162 U/L (4-35); Albumin Level 3.9 g/dL (3.5-5.1); Alkaline Phosphatase 151 U/L (38-126); Anion Gap 11 mmol/L (8-16); Aspartate Amino Transferase 40 U/L (14-36); Bilirubin,Total 0.4 mg/dL (0.2-1.3); Blood Urea Nitrogen 6 mg/dL (7-17); Calcium 9.1 mg/dL (8.4-10.2); Carbon Dioxide 20 mmol/L (22-30); Chloride 107 mmol/L (98-107); Estimated CRCL calculation 116 ml/min; Estimated Glomerular Filt Rate > 60; Glucose 96 mg/dL (65-110); Magnesium 1.5 mg/dL (1.6-2.3); Sodium 138 mmol/L (137-145)
--- NOTE | 2021-05-22 07:22 | PM.DS ---
DS: Admitting Diagnosis Admitting Diagnosis Cholelithiasis DS: Discharge Diagnosis Discharge Diagnosis (1) Intractable nausea and vomiting: Onset Date: ~04/2021 Code(s): R11.2 - Nausea with vomiting, unspecified Status: Acute Assessment and Plan: Clear liquid diet no nausea and vomiting reported SUPPORTIVE CARE IV FLUIDS PPI NEEDED (2) Cholecystitis: Code(s): K81.9 - Cholecystitis, unspecified Status: Acute Assessment and Plan: STARTED ON UNASYN 3gm IV WBC 5.5 trend labs labs in the am MRCP-cholelithiasis and a 3mm stone at the distal most aspect of the common bile duct ERCP removed a 4mm stone Cholecystectomy possibly tomorrow Is to be scheduled for surgical procedure at a later time this week (3) Elevated liver enzymes: Onset Date: ~04/2021 Code(s): R74.8 - Abnormal levels of other serum enzymes Status: Acute Assessment and Plan: LIKELY SECONDARY TO cholecystitis RIGHT UPPER QUADRANT ULTRASOUND: Cholelithiasis No liver lesion identified AST ALT trend down AST/ALT 464/359 on admission AST/ALT 57/200 today Continue to trend down (4) Cholelithiasis and cholecystitis with obstruction: Onset Date: ~03/2021 Code(s): K80.19 - Calculus of gallbladder with other cholecystitis with obstruction Status: Acute Assessment and Plan: SURGERY AND GI HAS BEEN CONSULTED: thank you for your recommendations MRCP 05/19/21 ERCP 05/21/21 DS: Summary Hospital Course Hospital Course: Jessica Nguyen is a 30 year old female female from [place] who only speaks Nauruan says that for last 2-3 months had at least 2 different episodes of severe pain in epigastric area with radiation to RUQ and her back with nausea and vomiting lasting up to few hours. She underwent an MRCP and ERCP which revealed obstructive stone in the common bile duct. A 4mm stone was removed and symptoms have improved. Patient will still need a cholecystectomy. She will be scheduled for a lap linda later this week with Dr. Neal. Labs have been improving since admission. WBC 6.0, H/H 12.1/37.0, Na 140, K 3.7, BUN/Cr 10/0.50, Glucose 108, still stable at discharge. AST/ALT have been elevated and started at 464/359, and is currently 40/162. Mg has been replaced a couple of times with values as low as 1.5. Currently, She denies chest pain, shortness of breath, nausea, vomiting, cough, and weakness. Status at Discharge Functional status at discharge: independent ambulation Overall status at discharge: patient is progressing back to baseline Time Spent with Patient Time attestation: Total time spent providing and/or coordinating discharge services: 56 minutes Time spent: Greater than 30 minutes Specific discharge activities: DC Instructions, lab and chart review, education, diagnostic test, care coordination, and documentation Exam Const: General: cooperative, healthy appearing, comfortable, no acute distress, well developed, alert and awake Nutritional Appearance: average body habitus and well nourished Orientation/consciousness: oriented to person, oriented to place, oriented to time and patient oriented x3 HENMT: Head: normal to inspection, normocephalic and atraumatic Ears: hearing grossly normal bilaterally General nose exam: Normal external nose present Face and sinus: normal facial exam Mouth: Yes Normal oral and palatal mucosa present Eyes: General: appearance normal, both eyes and all related structures Alignment and Position: alignment normal Sclera: sclerae normal Pupils: Equal, round and reactive pupils present EOM: EOMs intact bilaterally Neck: Neck: full ROM, no lymphadenopathy and no JVD Thyroid: thyroid normal Lymphatic: no lymphadenopathy noted Resp: Effort & Inspection: normal respiratory effort and able to speak in complete sentences Auscultation: clear to auscultation inocente
--- NOTE | 2021-05-22 07:43 | WPDANESPN ---
Anes - Prog Note Post-Op Date/Time: 05/22/21 07:43 Cardiovascular status: normal Respiratory status: normal Airway patency: baseline Mental status: baseline Post-Op hydration status: normal Vital Signs: Last Vital Signs Temp 36.5 C 05/22/21 05:51 Pulse 59 L 05/22/21 05:51 Resp 14 05/22/21 05:51 BP 117/68 05/22/21 05:51 Pulse Ox 99 05/22/21 05:51 Pain Score (VAS): 10/29 I/O: Intake & Output 05/21/21 05/21/21 05/22/21 15:59 23:59 07:59 Intake Total 1100 2300 300 Balance 1100 2300 300 Laboratory Tests 05/22/21 05:32 05/22/21 05:32 05/22/21 05/22/21 05:32 05:32 WBC 6.3 RBC 3.83 L Hgb 12.0 Hct 35.2 L MCV 91.9 MCH 31.3 MCHC 34.1 RDW 12.0 Plt Count 217 MPV 10.7 H Sodium 138 Potassium 4.0 Chloride 107 Carbon Dioxide 20 L Anion Gap 11 BUN 6 L Creatinine 0.50 L Estim Creat Clear Calc 116 Estimated GFR > 60 Glucose 96 Calcium 9.1 Magnesium 1.5 L Total Bilirubin 0.4 AST 40 H ALT 162 H Alkaline Phosphatase 151 H Total Protein 7.0 Albumin 3.9 Post-procedural complaints: none Patient Feedback: Patient satisfied with anesthetic care.
== END 2021-05-22 09:08 | disposition home or self-care (01) ==
LOC: ANHED 21:32 → ANH2MED 05-19 01:14
PROVIDERS: Internal Medicine Gastroenterology; Admitting Provider Internal Medicine; Emergency Provider Emergency Medicine; Visit Provider Nurse Practitioner
PROC: 0FC98ZZ Extirpation of Matter from Common Bile Duct, Via Natural or Artificial Opening Endoscopic (ICD-10-PCS; CPT 43260; principal; 2021-05-21 14:00)
DX: K80.60 Calculus of gallbladder and bile duct with cholecystitis, unspecified, without obstruction (principal); K29.80 Duodenitis without bleeding
CPT/HCPCS: 36415; 74177; 74183; 74329; 76376; 76705; 80053; 80074; 81001; 81025; 83690; 83735; 85025; 85027; 96365; 96375; 99285; A9270; A9577; J0295; J1100; J2270; J2370; J2405; J2543; J2704; J3010; J3475; J7030; J7120; Q9966; Q9967

== ENCOUNTER 2021-05-23 10:47 | Outpatient (CLI) | payer MEDICAID, SELFPAY ==
[2021-05-23 11:29] LABS: EDCOVIDSCREEN Negative (Negative)
== END 2021-05-23 10:48 | disposition home or self-care (01) ==
LOC: ANHSURGERY 10:49
PROVIDERS: Visit Provider Surgery
DX: Z01.812 Encounter for preprocedural laboratory examination (principal); Z20.822 Contact with and (suspected) exposure to COVID-19
CPT/HCPCS: 87426; C9803

== ENCOUNTER 2021-05-23 10:50 | Outpatient (CLI) | payer MEDICAID, SELFPAY ==
[2021-05-23 12:18] LABS: Alanine Aminotransferase 126 U/L (4-35); Albumin Level 4.2 g/dL (3.5-5.1); Alkaline Phosphatase 131 U/L (38-126); Amylase 81 U/L (30-110); Aspartate Amino Transferase 39 U/L (14-36); Bilirubin,Total 0.2 mg/dL (0.2-1.3); Lipase 157 U/L (23-300)
== END 2021-05-23 10:51 | disposition home or self-care (01) ==
LOC: ANHSURGERY 10:50
PROVIDERS: Visit Provider Surgery
DX: K80.19 Calculus of gallbladder with other cholecystitis with obstruction (principal); Z01.818 Encounter for other preprocedural examination
CPT/HCPCS: 36415; 80076; 82150; 83690

== ENCOUNTER 2021-05-24 01:57 | Day surgery (SDC) | payer MEDICAID, SELFPAY ==
[2021-05-23 11:25] VITALS: BP 100/62; PULSE 58; RESP 18; TEMP 36.8; O2SAT 100; BMI 26.2
--- NOTE | 2021-05-23 15:00 | P.PNAN_ITS ---
Anes - Initial Pre Proc Eval Procedure: Operation Date: 05/24/21 09:30 Proposed Procedures p Laparoscopic Cholecystectomy with Intra Operative Cholangiogram, Possible Open - Srinivasa Neal MD Date/Time: 05/23/21 15:00 Surgeon: Srinivasa Neal MD Pre Op Diagnosis: acute cholecystitis with cholelithiasis Patient Data Age: 30 Gender: F Height: 1.63 m Weight: 69.4 kg Last Vital Signs Temp 36.8 C 05/23/21 11:25 Pulse 58 L 05/23/21 11:25 Resp 18 05/23/21 11:25 BP 100/62 05/23/21 11:25 Pulse Ox 100 05/23/21 11:25 Allergies Allergy/AdvReac Type Severity Reaction Status Date / Time No Known Allergies Allergy Verified 05/23/21 11:24 Home Medications Medication Instructions Recorded Confirmed Type No Home Medications 05/18/21 05/23/21 History Patient hx anesthesia problems: none Family hx anesthesia problems: none [facility] Past Medical History Medical History (Updated 05/20/21 @ 11:27 by Dimas Rincon MD) Choledocholithiasis with acute cholecystitis with obstruction RUQ pain Family History Family History Other Unknown family medical history Social History Social History Smoking status: Never smoker Second hand tobacco smoke exposure: No Alcohol intake: never Substance use: never Substance use type: does not use Living arrangements: with family Gender identity (if verbalized by the patient): Female Spiritual care concerns: No Anes - Eval Final PreProcedure Day of Procedure 05/23/21 15:00 Patient weight: overweight Heart: regular rate and rhythm Lungs: clear to auscultation and normal air movement Airway: Mallampati scale class II Neurological: alert and oriented Last oral intake: >/= 8 hours ASA classification: II Emergent: no Anesthetic plan: proceed Anesthesia type and monitoring: general ETT Informed Consent: The patient's anesthetic plan and its attendant risks and benefits were discussed with the patient/family/POA. Questions were solicited and answers provided to the satisfaction of the patient/family/POA.
[2021-05-24] VITALS (11 sets, daily range): BP systolic 116–141; BP diastolic 67–83; PULSE 49–76; RESP 12–16; TEMP 36.3–37.1; O2SAT 100
--- NOTE | ~2021-05-24 | XR_ITS ---
EXAMINATION: XR cholangiogram surg 1st inj DATE: 05/24/2021 11:02 INDICATION: Cholelithiasis TECHNIQUE: 126 fluoroscopic images of the right upper quadrant were obtained during intraoperative ch olangiography performed by the surgeon. I was not present in the operating room. Fluoroscopy exposure time was 19.8 seconds. COMPARISON: None. FINDINGS: There is persistent enlargement of the common bile duct and central intrahepatic ducts. No biliary stones or stricture are identified. IMPRESSION: 1. No biliary stones or stricture identified. Findings were communicated directly to the operating ro om at 1055 hours on 05/24/2021. Reviewed, dictated and finalized at location A. IMPRESSION: 1. No biliary stones or stricture identified. Findings were communicated direct ly to the operating room at 1055 hours on 05/24/2021.
[2021-05-24] MEDS: LACTATED RINGERS 1,000 ML 30 ML IV CONT ×2 (08:00→11:33)
--- NOTE | 2021-05-24 08:48 | SUR.PREOP ---
OPI EVENTS INTERN LUIS ID #[id number] USED FOR COMMUNICATION IN PREOP WITH PT AND SPOUSE.
[2021-05-24] MEDS: ACETAMINOPHEN 500 MG TABLET 1000 MG PO (08:58)
[2021-05-24] MEDS: KETOROLAC 15 MG/ML VIAL (*BKC) IV PUSH (09:01)
--- NOTE | 2021-05-24 09:08 | WPDHPUPDATE1 ---
History and Physical Update Update Date/Time: 05/24/21 09:08 History and Physical has been reviewed, including an updated exam of the patient. There are changes in the patient's condition. Prior to recent hospital discharge the pt had a successful ERCP. She went home and has not had much abdominal pain or problems and now returns for a lap cholecystectomy, possible open cholecystectomy. Risks, benefits, and alternatives have been discussed and questions answered. Patient agrees to proceed with procedure.
[2021-05-24] MEDS: ceFAZolin 2 GM/D5W 50 ML 2 GM/50 ML BAG IVPB (09:43)
[2021-05-24] MEDS: BUPIVACAINE/EPINEPHRINE 0.5% 30 ML VIAL INFILTRATE (10:07)
--- NOTE | 2021-05-24 11:29 | W.PM.PROC2 ---
Procedure Note - Detailed Date of Procedure 05/24/21 Pre-op Diagnosis chronic cholecystitis with cholelithiasis Post-op Diagnosis same Procedure Performed Laparoscopic cholecystectomy with intraoperative cholangiogram Surgeon Srinivasa Neal MD Clinical Applications Manager Mirlande [employer] Assistant Executive Housekeeper Anesthesia general Indications Patient returns this time for laparoscopic cholecystectomy due to known gallstones. She was recently hospitalized with a common bile duct stone which was handled with ERCP. In order to prevent future episodes of similar problem she is here for elective laparoscopic cholecystectomy with cholangiogram. Findings Patient had a normal looking gallbladder with a fairly thick fibrous cystic duct. By cholangiogram cystic duct was tortuous and fairly long period there were no common bile duct stones seen on cholangiogram today. There were small palpable stones within the gallbladder upon risk extraction. Description of Procedure Procedure Details: Patient was seen preoperatively in the holding area and risks, benefits and alternatives confirmed. Patient was taken to the operating room and general anesthesia was induced. A time out was then preformed with the surgery team confirming patient and site of surgery. The abdomen was prepped and draped in the usual sterile fashion. Incision was made just below the umbilicus. Two stay sutures of O- Vicryl were used to elevate the mid-line fascia beneath the umbilicus and a small incision was made under direct vision. The peritoneum was entered. The 12 mm Medina cannula was introduced under direct vision. First under low flow and then under high flow the abdomen was insufflated with carbon dioxide never exceeding a pressure of 14. Three 5 mm trocars were then introduced under direct vision. The following trocars were introduced under direct vision: a 5 mm in the epigastrium and two 5 mm trocars along the right costal margin. There were no significant adhesions to the gallbladder The gall bladder was grasped and the cystic duct and artery were dissected free and I carefully identified a window of safety with only two other structures in the area being the cystic duct and the cystic artery. I then used a 5 mm endo-clip technical applications specialist to place 2 clips on the patient's side 1 on the gallbladder side on the cystic artery and just 1 clip on the gallbladder side of the cystic duct. A small hole was made in the cystic duct with endoshears and a cholagio-cath introduced. This was held in place with a single 5 mm clip. A cholangiogram was obtained revealing free flow into the cystic duct, common bile duct, common hepatic, right and left hepatic ducts with free flow into the duodenum with no filling defects in the intra nor extrahepatic biliary tree. On the cholangiogram the cystic duct was noted to be fairly long extended at least 2-3 cm beyond where our clip was holding the catheter in place. And somewhat tortuous. The common duct was still somewhat dilated but there were no filling defects. The catheter was removed and the cystic duct was clipped with a 5 mm endoclip-technical applications specialist placing 2 clips on the patient's side of the cystic duct. The cystic duct was then transected. The cystic artery was also transected at this point. The gall bladder was removed using electrocautery and then removed using a large 10 mm grasper via the umbilical incision. The trocars were removed visualizing hemostasis and the remaining gas evacuated. The large trocar site at the umbilicus was closed with an 0 vicryl figure of 8 suture. The 2 stay sutures mentioned above on either side of the fascia were also tied together to help approximate this midline fascia. Further local anesthetic was placed into each incision for postop pain control. The skin incisions were closed with subcuticular suture of 4-0 Monocryl. Surgical glue then was applied to all the incisions. Patient tolerated the procedure well was taken to the recovery room in good condition
[2021-05-24] MEDS: ONDANSETRON INJ 4 MG/2 ML VIAL IV PUSH (13:03)
[2021-05-24] MEDS: fentaNYL CITRATE INJ (*CRX) 100 MCG/2 ML VIAL 25 MCG IV PUSH ×2 (13:05→13:20)
[2021-05-24] MEDS: oxyCODONE HCL (*CRX) 5 MG TAB IR PO (13:34)
== END 2021-05-24 14:45 | disposition home or self-care (01) ==
PROVIDERS: Visit Provider Surgery
PROC: 0FT44ZZ Resection of Gallbladder, Percutaneous Endoscopic Approach (ICD-10-PCS; CPT 47562; principal; 2021-05-24 09:30)
DX: K80.10 Calculus of gallbladder with chronic cholecystitis without obstruction (principal); R11.2 Nausea with vomiting, unspecified; R74.8 Abnormal levels of other serum enzymes; R10.11 Right upper quadrant pain
CPT/HCPCS: 47563; 74300; 88304; A9270; J0690; J1100; J1170; J1885; J2250; J2405; J2704; J2710; J3010; J7030; J7120; Q9966